=== PATIENT | male | born 1980 | race Caucasian/White ===

== ENCOUNTER 2017-09-04 07:04 | Emergency (ER) | payer OTHER ==
[~2017-09-04] VITALS: Ht 170.2 cm; Wt 86.0 kg
[2017-09-04 07:16] VITALS: BP 125/74; PULSE 72; RESP 15; O2SAT 100
[2017-09-04 07:25] VITALS: BP 125/74; PULSE 75; RESP 15; TEMP 98.5; O2SAT 100
[2017-09-04] MEDS ORDERED: TETANUS/DIPHTHERIA TOXOID ADULT 0.5 ML VIAL IM ONE (07:30)
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
== END 2017-09-04 09:42 | disposition home or self-care (01) ==
LOC: NEPD 07:04
DX: S00.83XA Contusion of other part of head, initial encounter (principal); Y00.XXXA Assault by blunt object, initial encounter; S62.614A Displaced fracture of proximal phalanx of right ring finger, initial encounter for closed fracture; W22.8XXA Striking against or struck by other objects, initial encounter; F32.9 Major depressive disorder, single episode, unspecified; I10 Essential (primary) hypertension; I25.10 Atherosclerotic heart disease of native coronary artery without angina pectoris; Z72.0 Tobacco use; Z23 Encounter for immunization
CPT/HCPCS: 70450; 70486; 72125; 73130; 90471